=== PATIENT | male | born 1995 | race Caucasian/White ===

== ENCOUNTER 2023-05-04 10:03 | Outpatient (CLI) | payer OTHER ==
[2023-05-04 11:06] LABS: CREATININE 0.7 mg/dL (0.6-1.3)
[2023-05-04 11:35] LABS: THYROID STIMULATING HORMONE 1.57 uIU/mL (0.34-5.60)
[2023-05-04 11:42] LABS: LITHIUM 0.16 mmol/L
== END 2023-05-04 10:04 | disposition home or self-care (01) ==
LOC: LAB 10:03
PROVIDERS: ATTEND Psychiatry & Neurology Psychiatry
DX: F31.9 Bipolar disorder, unspecified (principal)
CPT/HCPCS: 36415; 80178; 82565; 84443; 84520